=== PATIENT | male | born 1985 | race African-American/Black ===

== ENCOUNTER 2019-12-23 12:13 | Emergency (ER) | payer MEDICAID, OTHER ==
[~2019-12-23] VITALS: Ht 172.7 cm; Wt 97.5 kg
[2019-12-23 16:15] VITALS: BP 141/84
== END 2019-12-23 17:31 | disposition home or self-care (01) ==
LOC: ER 12:13
DX: J06.9 Acute upper respiratory infection, unspecified (principal); R19.7 Diarrhea, unspecified; R11.2 Nausea with vomiting, unspecified; R42 Dizziness and giddiness; F17.210 Nicotine dependence, cigarettes, uncomplicated